=== PATIENT | female | born 1990 | race Caucasian/White ===

== ENCOUNTER 2022-10-31 14:15 | Emergency (ER) | payer OTHER ==
[~2022-10-31] VITALS: Ht 172.7 cm; Wt 91.0 kg
[2022-10-31 14:16] VITALS: BP 128/71
[2022-10-31] MEDS ORDERED: METH-386 PO (14:19)
[2022-10-31] MEDS ORDERED: PROP10TA73 PO (14:19)
[2022-11-01 08:06] LABS: HIV 1-2 SCREEN 4TH GEN W/RFLX Non Reactive (Non Reactive)
== END 2022-10-31 14:52 | disposition home or self-care (01) ==
LOC: EMS 14:15
DX: Z57.8 Occupational exposure to other risk factors (principal); Z98.890 Other specified postprocedural states; Z88.2 Allergy status to sulfonamides
CPT/HCPCS: 86706; 87081; 87340; 87389; 99283

== ENCOUNTER 2025-05-29 13:28 | Emergency (ER) | payer OTHER ==
[~2025-05-29] VITALS: Ht 172.7 cm; Wt 86.4 kg
[~2025-05-29 13:28] MED LIST: METH-386 PO; PROP10TA73 PO
[2025-05-29 13:33] VITALS: BP 126/80; PULSE 88; RESP 18; TEMP 98.2; O2SAT 99
== END 2025-05-29 16:08 | disposition home or self-care (01) ==
LOC: EMS 13:28
DX: O26.891 Other specified pregnancy related conditions, first trimester (principal); B37.89 Other sites of candidiasis; Z98.890 Other specified postprocedural states; Z88.2 Allergy status to sulfonamides; Z79.899 Other long term (current) drug therapy; Z3A.12 12 weeks gestation of pregnancy
CPT/HCPCS: 87081; 99283